=== PATIENT | female | born 1990 | race Caucasian/White ===

== ENCOUNTER 2019-01-22 15:18 | Emergency (ER) | payer OTHER ==
[~2019-01-22] VITALS: Ht 157.5 cm; Wt 54.9 kg
[~2019-01-22 15:18] MED LIST: FIORICET 50-301 EACH PO; KETO10TA2 PO; NO MEDICAMENTO; ORPH100T PO; PROVENTIL HFA6.7 GM; TUSSI PRES-B L120 M1 PO
== END 2019-01-22 20:29 | disposition home or self-care (01) ==
LOC: ER 15:18
DX: R42 Dizziness and giddiness (principal)

== ENCOUNTER 2022-03-29 11:02 | Emergency (ER) | payer OTHER ==
[~2022-03-29] VITALS: Ht 157.5 cm; Wt 52.6 kg
== END 2022-03-29 15:30 | disposition home or self-care (01) ==
LOC: ER 11:02
DX: O20.9 Hemorrhage in early pregnancy, unspecified (principal); Z3A.01 Less than 8 weeks gestation of pregnancy

== ENCOUNTER 2022-05-02 09:10 | Outpatient (CLI) | payer OTHER | END 2022-05-02 11:10 | disposition home or self-care (01) | LOC: PRENATAL 09:10 | PROVIDERS: ATTEND Obstetrics & Gynecology Maternal & Fetal Medicine | DX: O36.80X0 Pregnancy with inconclusive fetal viability, not applicable or unspecified (principal); Z36.9 Encounter for antenatal screening, unspecified; Z3A.11 11 weeks gestation of pregnancy ==

== ENCOUNTER 2022-07-02 07:43 | Outpatient (CLI) | payer OTHER | END 2022-07-02 09:22 | disposition home or self-care (01) | LOC: PRENATAL 07:43 | PROVIDERS: ATTEND Obstetrics & Gynecology Maternal & Fetal Medicine | DX: O35.0XX0 Maternal care for (suspected) central nervous system malformation in fetus, not applicable or unspecified (principal); O35.3XX0 Maternal care for (suspected) damage to fetus from viral disease in mother, not applicable or unspecified; Z3A.20 20 weeks gestation of pregnancy ==

== ENCOUNTER 2022-10-29 15:18 | Inpatient (IN) | payer OTHER ==
[~2022-10-29] VITALS: Ht 157.5 cm; Wt 4.1 kg
[2022-11-19] MEDS ORDERED: PRENATAL TABLE1 EAC3 PO (08:35)
[2022-11-19] MEDS ORDERED: IRON236 MG PO (08:36)
[2022-11-22] MEDS ORDERED: IBUPROFEN800 MG PO (09:50)
== END 2022-11-22 17:09 | disposition home or self-care (01) | DRG 788 ==
LOC: LDR 11-19 06:12 → O/R 11-19 06:12 → OB/GYN 11-19 06:12 → O/R 11-20 10:12 → OB/GYN 11-20 14:38
PROVIDERS: ADMIT Obstetrics & Gynecology; ATTEND Obstetrics & Gynecology
PROC: 10D00Z1 Extraction of Products of Conception, Low, Open Approach (ICD-10-PCS; principal; 2022-11-19)
PROC: 4A1HXCZ Monitoring of Products of Conception, Cardiac Rate, External Approach (ICD-10-PCS; 2022-11-19)
PROC: 3E033VJ Introduction of Other Hormone into Peripheral Vein, Percutaneous Approach (ICD-10-PCS; 2022-11-19)
PROC: 3E0P7VZ Introduction of Hormone into Female Reproductive, Via Natural or Artificial Opening (ICD-10-PCS; 2022-11-19)
DX: O61.0 Failed medical induction of labor (principal); O33.5XX0 Maternal care for disproportion due to unusually large fetus, not applicable or unspecified; O36.63X0 Maternal care for excessive fetal growth, third trimester, not applicable or unspecified; Z3A.40 40 weeks gestation of pregnancy; Z37.0 Single live birth; Z20.822 Contact with and (suspected) exposure to COVID-19

== ENCOUNTER 2025-01-24 13:44 | Emergency (ER) | payer OTHER ==
[~2025-01-24] VITALS: Ht 157.5 cm; Wt 55.3 kg
[~2025-01-24 13:44] MED LIST changes: +IBUPROFEN800 MG PO; +IRON236 MG PO; +PRENATAL TABLE1 EAC3 PO
[2025-01-24 16:28] LABS: URINE APPEARANCE Clear; URINE BILIRRUBIN Negative (NEGATIVE); URINE BLOOD Negative; URINE COLOR Yellow; URINE GLUCOSE Negative (NEGATIVE); URINE KETONE Negative (NEGATIVE); URINE LEUKOCYTE Negative; URINE NITRATE Negative; URINE PROTEIN Negative (NEGATIVE); URINE UROBILINOGEN 0.2 E.U./dl
[2025-01-24 16:29] LABS: URINE BACTERIA 296.2 uL (0.0-1933); URINE EPITHELIAL CELLS 11.3 uL (0.0-38.8); URINE WBC 2.6 uL (0.0-23.2)
[2025-01-24 16:31] LABS: HEMATOCRIT 40.1 % (36.0-45.00); HEMOGLOBIN 13.8 g/dL (12.0-15.00); MEAN CELL VOLUME 90.2 fL (80.00-100.00); MEAN CORPUSCULAR HEMOGLOBIN 31.1 pg (27.00-32.0); MEAN CORPUSCULAR HGB CONC 34.4 g/dl (32.0-36.0); PLATELET COUNT 310 K/uL (150-450); RED BLOOD COUNT 4.44 M/uL (4.00-6.00); RED CELL DISTRIBUTION WIDTH 13.4 % (11.5-14.5)
[2025-01-24 16:32] LABS: URINE RBC 1.3 uL (0.0-20.8)
== END 2025-01-24 19:43 ==
LOC: ER 13:47
PROVIDERS: Emergency Medicine
DX: O20.9 Hemorrhage in early pregnancy, unspecified (principal); O99.011 Anemia complicating pregnancy, first trimester; Z3A.00 Weeks of gestation of pregnancy not specified; R10.2 Pelvic and perineal pain; Z87.09 Personal history of other diseases of the respiratory system

== ENCOUNTER 2025-03-15 09:53 | Outpatient (CLI) | payer OTHER | END 2025-03-15 09:54 | disposition home or self-care (01) | LOC: PRENATAL 09:53 | PROVIDERS: ATTEND Obstetrics & Gynecology Maternal & Fetal Medicine | DX: O36.80X0 Pregnancy with inconclusive fetal viability, not applicable or unspecified (principal); Z36.82 Encounter for antenatal screening for nuchal translucency; Z14.8 Genetic carrier of other disease; O34.219 Maternal care for unspecified type scar from previous cesarean delivery; Z3A.12 12 weeks gestation of pregnancy ==

== ENCOUNTER → 2025-05-16 09:11 | Outpatient (CLI) | payer OTHER | END | disposition home or self-care (01) | LOC: PRENATAL 09:11 | PROVIDERS: ATTEND Obstetrics & Gynecology Maternal & Fetal Medicine | DX: O44.00 Complete placenta previa NOS or without hemorrhage, unspecified trimester (principal); O34.219 Maternal care for unspecified type scar from previous cesarean delivery; Z3A.20 20 weeks gestation of pregnancy ==

== ENCOUNTER 2025-07-14 09:24 | Outpatient (CLI) | payer OTHER | END 2025-07-14 09:25 | disposition home or self-care (01) | LOC: PRENATAL 09:24 | PROVIDERS: ATTEND Obstetrics & Gynecology Maternal & Fetal Medicine | DX: O26.849 Uterine size-date discrepancy, unspecified trimester (principal); O34.219 Maternal care for unspecified type scar from previous cesarean delivery; Z3A.30 30 weeks gestation of pregnancy ==

== ENCOUNTER 2025-08-19 10:00 | Outpatient (CLI) | payer OTHER | END 2025-08-19 10:06 | disposition home or self-care (01) | LOC: PRENATAL 10:00 | PROVIDERS: ATTEND Obstetrics & Gynecology Maternal & Fetal Medicine | DX: O26.849 Uterine size-date discrepancy, unspecified trimester (principal); O36.8199 Decreased fetal movements, unspecified trimester, other fetus; O34.219 Maternal care for unspecified type scar from previous cesarean delivery; O99.019 Anemia complicating pregnancy, unspecified trimester; Z3A.35 35 weeks gestation of pregnancy ==

== ENCOUNTER 2025-08-25 17:02 | Outpatient (CLI) | payer OTHER ==
[~2025-08-25] VITALS: Ht 157.5 cm; Wt 69.9 kg
[2025-08-25 16:31] VITALS: BP 106/72; O2SAT 98
[2025-08-25] MEDS ORDERED: SERTRALINE20 MG/1 ML PO (17:22)
[2025-08-25] MEDS ORDERED: RINGERS SOLUTION,LACTATED 1,000 ML IV SCH (17:30)
[2025-08-25 18:15] LABS: BASO % 0.2 % (0.1-1.2); EOS # 0.07 (0.04-0.54); EOS % 0.7 % (0.7-7.0); LYMPH # 1.19 (1.18-3.74); LYMPH % 12.6 % (19.3-53.1); MEAN PLATELET VOLUME 10.30 fl (9.4-12.4); MONO # 0.47 (0.24-0.82); MONO % 5.0 % (4.7-12.5); NEUT # 7.68 (1.56-6.13); NEUT % 81.0 % (34.0-71.1); RED CELL DISTRIBUTION WIDTH 13.2 % (11.6-14.4)
[2025-08-25 18:16] LABS: URINE APPEARANCE Clear; URINE BILIRRUBIN Negative (NEGATIVE); URINE BLOOD Trace; URINE COLOR Yellow; URINE GLUCOSE Negative (NEGATIVE); URINE KETONE Trace (NEGATIVE); URINE LEUKOCYTE Moderate; URINE NITRATE Negative; URINE PROTEIN Negative (NEGATIVE); URINE UROBILINOGEN 0.2 E.U./dl
[2025-08-25 18:20] LABS: URINE BACTERIA 818.3 uL (0.0-1933); URINE EPITHELIAL CELLS 36.7 uL (0.0-38.8); URINE WBC 30.6 uL (0.0-23.2)
[2025-08-25 18:49] LABS: INR 0.96
[2025-08-25 18:53] LABS: ALT/SGPT 23.0 U/L (12-78); AST/SGOT 15.0 U/L (15-37); BILIRUBIN TOTAL 0.4 mg/dL (0.3-1.2); BUN CREA RATIO 9.0 (7.0-25.0); CREATININE SERUM 0.32 mg/dL (0.55-1.02); GFR 237.81; GLOBULINA 3.1 G/DL (2.4-3.5); GLUCOSE FASTING 89.0 mg/dL (65-100); OSMOLALITY SERUM 277.0 MOSM/KG (275-295)
[2025-08-25 19:27] LABS: URINE CAST 0.14 uL (0.0-1.40); URINE RBC 1.4 uL (0.0-20.8)
[2025-08-25 19:36] VITALS: BP 96/60
[2025-08-25] MEDS ORDERED: CEFAZOLIN SODIUM 1,000 MG VIAL ONE (19:51)
[2025-08-25] MEDS ORDERED: SOD FERRIC GLUC COMPLX/SUCROSE 62.5 MG/5 ML AMPUL IV ONE (20:00)
[2025-08-25] MEDS ORDERED: CEFAZOLIN SODIUM 2,000 MG in 0.9 % SODIUM CHLORIDE 100 ML IV SCH (21:00)
[2025-08-25 23:35] VITALS: BP 92/52
[2025-08-26 04:00] VITALS: BP 96/59
[2025-08-26] MEDS ORDERED: CEFAZOLIN SODIUM 1,000 MG VIAL ONE (04:24)
[2025-08-26 07:12] VITALS: BP 91/52
[2025-08-26 10:23] VITALS: BP 91/52
== END 2025-08-26 11:16 | disposition home or self-care (01) ==
LOC: OBS/DEL 17:02
PROVIDERS: ATTEND Obstetrics & Gynecology
DX: O23.43 Unspecified infection of urinary tract in pregnancy, third trimester (principal); N39.0 Urinary tract infection, site not specified; H53.8 Other visual disturbances; R10.2 Pelvic and perineal pain; O99.013 Anemia complicating pregnancy, third trimester; Z3A.34 34 weeks gestation of pregnancy

== ENCOUNTER 2025-09-16 09:15 | Inpatient (IN) | payer OTHER ==
[~2025-09-16] VITALS: Ht 157.5 cm; Wt 3.6 kg
[~2025-09-16 09:15] MED LIST changes: +SERTRALINE20 MG/1 ML PO
[2025-09-16] MEDS ORDERED: DHA (09:41)
[2025-09-16] MEDS ORDERED: FUSION PLUS CA1 EACH PO (09:41)
[2025-09-16] MEDS ORDERED: [UNRECOGNIZED DRUG - OTHER] (09:41)
[2025-09-16 10:12] LABS: URINE APPEARANCE Clear; URINE BILIRRUBIN Negative (NEGATIVE); URINE COLOR Yellow; URINE GLUCOSE Negative (NEGATIVE); URINE KETONE Negative (NEGATIVE); URINE LEUKOCYTE Large; URINE NITRATE Negative; URINE PROTEIN Negative (NEGATIVE); URINE UROBILINOGEN 0.2 E.U./dl
[2025-09-16 10:14] LABS: BASO % 0.4 % (0.1-1.2); EOS # 0.07 (0.04-0.54); EOS % 0.9 % (0.7-7.0); LYMPH # 1.33 (1.18-3.74); LYMPH % 16.6 % (19.3-53.1); MEAN PLATELET VOLUME 10.70 fl (9.4-12.4); MONO # 0.45 (0.24-0.82); MONO % 5.6 % (4.7-12.5); NEUT # 6.11 (1.56-6.13); NEUT % 76.0 % (34.0-71.1)
[2025-09-16 10:15] LABS: URINE BACTERIA 1251.4 uL (0.0-1933); URINE EPITHELIAL CELLS 32.7 uL (0.0-38.8); URINE RBC 9.0 uL (0.0-20.8); URINE WBC 27.2 uL (0.0-23.2)
[2025-09-16 10:21] LABS: URINE BLOOD TRACES; URINE CAST 0.00 uL (0.0-1.40)
[2025-09-16 10:30] LABS: RED CELL DISTRIBUTION WIDTH 17.0 % (11.6-14.4)
[2025-09-16 10:41] LABS: INR < 0.93
[2025-09-20 08:21] VITALS: BP 106/70
[2025-09-20] MEDS ORDERED: ERYTHROMYCIN BASE OPHT 1GM EACH TUBE OP ONE (10:02)
[2025-09-20] MEDS ORDERED: CEFAZOLIN SODIUM 1,000 MG VIAL ONE (10:02)
[2025-09-20] MEDS ORDERED: OXYTOCIN 10 UNITS/ML VIAL ONE (10:02)
[2025-09-20 16:50] VITALS: BP 119/69
[2025-09-20] MEDS ORDERED: MORPHINE SULFATE 4 MG/ML CARTRIDGE IV SCH (17:00)
[2025-09-20] MEDS ORDERED: KETOROLAC TROMETHAMINE 60 MG VIAL IM ONE (21:00)
[2025-09-20 21:16] LABS: BASO % 0.2 % (0.1-1.2); EOS # 0.03 (0.04-0.54); EOS % 0.3 % (0.7-7.0); LYMPH # 1.42 (1.18-3.74); LYMPH % 12.3 % (19.3-53.1); MEAN PLATELET VOLUME 10.80 fl (9.4-12.4); MONO # 0.58 (0.24-0.82); MONO % 5.0 % (4.7-12.5); NEUT # 9.43 (1.56-6.13); NEUT % 81.9 % (34.0-71.1); RED CELL DISTRIBUTION WIDTH 16.1 % (11.6-14.4)
[2025-09-21 02:35] VITALS: BP 107/68
[2025-09-21] MEDS ORDERED: OxyCODONE HCL 5 MG TABLET (ROXICODONE) PO SCH (05:00)
[2025-09-21 08:17] VITALS: BP 120/78
[2025-09-21] MEDS ORDERED: SIMETHICONE 125 MG CAPSULE PO SCH (09:00)
[2025-09-21] MEDS ORDERED: DOCUSATE SODIUM 100MG CAP PO SCH (09:00)
[2025-09-21] MEDS ORDERED: PNV,CALCIUM 72/IRON/FOLIC ACID 1 TAB TABLET PO SCH (09:00)
[2025-09-21 13:00] VITALS: BP 106/68
[2025-09-21 16:00] VITALS: BP 113/69
[2025-09-22 02:48] VITALS: BP 115/69
[2025-09-22 08:00] VITALS: BP 99/62
== END 2025-09-22 15:08 | disposition home or self-care (01) | DRG 788 ==
LOC: O/R 09-20 09:00 → OB/GYN 09-20 09:15
PROVIDERS: ADMIT Obstetrics & Gynecology; ATTEND Obstetrics & Gynecology
PROC: 4A1HXCZ Monitoring of Products of Conception, Cardiac Rate, External Approach (ICD-10-PCS; 2025-09-20)
PROC: 10D00Z1 Extraction of Products of Conception, Low, Open Approach (ICD-10-PCS; principal; 2025-09-20 19:30)
DX: O34.211 Maternal care for low transverse scar from previous cesarean delivery (principal); O36.63X0 Maternal care for excessive fetal growth, third trimester, not applicable or unspecified; O99.824 Streptococcus B carrier state complicating childbirth; Z3A.39 39 weeks gestation of pregnancy; Z37.0 Single live birth